=== PATIENT | female | born 1980 | race Caucasian/White ===

== ENCOUNTER 2019-03-27 15:56 | Emergency (ER) | payer SELFPAY ==
[~2019-03-27] VITALS: Ht 152.4 cm; Wt 70.3 kg
[2019-03-27 16:03] VITALS: Ht 152.4 cm; Wt 70.3 kg
[2019-03-27 16:55] VITALS: BP 131/70
== END 2019-03-27 17:17 | disposition home or self-care (01) ==
LOC: ED 15:56
DX: S01.01XA Laceration without foreign body of scalp, initial encounter (principal); W22.8XXA Striking against or struck by other objects, initial encounter; Y93.89 Activity, other specified; Y92.89 Other specified places as the place of occurrence of the external cause; Y99.8 Other external cause status
CPT/HCPCS: 90715; J2001